=== PATIENT | female | born 1995 | race Caucasian/White ===

== ENCOUNTER 2023-12-20 15:56 | Outpatient (AMB) | payer OTHER, SELFPAY ==
--- NOTE | 2023-12-20 15:58 | MHC.PC.OV ---
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 Accompanied by: Self / Same As Patient Allergies Sulfa (Sulfonamide Antibiotics) Allergy (Unknown, Verified 12/20/23 16:12) hives Medication List - Last Reconciled 12/20/23 by Luz Bosch MD cholecalciferol (vitamin D3) 25 mcg PO DAILY 30 days cyanocobalamin (vitamin B-12) 100 mcg (0.1 mL) IM Q4W 30 days hydrocortisone 1% (Anti-Itch (hydrocortisone)) 1 appl topical TID PRN 30 days ibuprofen 600 mg PO Q8H PRN insulin syringe-needle U-100 (CareTouch Insulin Syringe) Use 1 needle once a month norethindrone-e.estradiol-iron 1.5 mg-30 mcg ()/75 mg (7) ( FE .03/16 ()) 1 tab PO DAILY Tobacco use date assessed: 12/20/23 Dental Screening Dental Screen Date: 12/20/23 Did you have a dental visit in the last 12 months?: Yes Did you have a dental problem in the last 6 months where you did not have access to dental care?: No Was dental information given to patient?: Patient has dentist HPI HPI Comments History of Present Illness Details This is a 28-year-old female that comes for her physical exam. Pap smear done November 2023. No chest pain or shortness of breath. [facility] Medical History Eczema Surgical History No pertinent past surgical history Family History Father No problems noted. Mother Mental health disorder Social History (Updated 12/20/23 @ 16:15 by Luz Bosch MD) Housing: Apartment Alcohol intake: current Alcohol intake frequency: a few times a month Alcohol type: hard liquor Patient Tobacco Use Status: Former Tobacco user e-Cigarette/Vaping Use: Never Used Second Hand Smoke Exposure: No service: No Current occupational status: employed Current occupational exposures/hazards: No Cognitive needs: No Hearing needs: No Vision needs: No Questionnaire PHQ-9 Over the last 2 weeks, how often have you been bothered by any of the following problems? 1. Little interest or pleasure in doing things: not at all 2. Feeling down, depressed, or hopeless: not at all 3. Trouble falling or staying asleep, or sleeping too much: not at all 4. Feeling tired or having little energy: not at all 5. Poor appetite or overeating: not at all 6. Feeling bad about yourself - or that you are a failure or have let yourself or your family down: not at all 7. Trouble concentrating on things, such as reading the newspaper or watching television: not at all 8. Moving or speaking so slowly that other people could have noticed. Or the opposite - being so fidgety or restless that you have been moving around a lot more than usual: not at all 9. Thoughts that you would be better off or of hurting yourself in some way: not at all Total score: 0 Depression Screening Interpretation: Negative Depression Screening Done: Yes 20121 - PHQ-9 Billing: Yes Source: Developed by Drs. Jan Bee, Ashlee Jordan, Pj Hanson and colleagues, with an educational puja from [employer]. Thrive Questionnaire Date Thrive assessed: 12/20/23 I am a: Patient What is your living situation today?: I have a steady place to live Within the past 12 months, did the food you bought not last and you didn't have the money to get more?: Never true Within the past 12 months, did you worry whether your food would run out before you got money to buy more?: Never true Do you have trouble paying for medicines?: No Do you have trouble getting transportation to medical appointments?: No Do you have trouble paying your heating and electricity bill?: No Do you have trouble taking care of your child, family member or friend?: No Do you have trouble with day-to-day activities such as bathing, preparing meals, shopping, managing finances, etc.?: No Are you currently unemployed and looking for a job?: No Are you interested in more education?: No Please select the resources that you would like help with: None Currently or been in a relationship where the following occur: no concerns reported THRIVE Score: 0 AUDIT C Alcohol Use Questionnaire (AUDIT-C) 1. How often do you have a drink containing alcohol?: 2-4 times a month 2. How many drinks containing alcohol do you have on a typical day when you are drinking?: 1 or 2 3. How often do you have six or more drinks on one occasion?: Never Total Score: 2 Score Reviewed/Action Taken: No JASVIR-7 AMB Questionnaire JASVIR-7 Date JASVIR - 7 assessed: 12/20/23 Feeling nervous, anxious, or on edge: 0 = Not at all Not being able to stop or control worryin = Not at all Worrying too much about different things: 0 = Not at all Trouble relaxin = Not at all Being so restless that it is hard to sit still: 0 = Not at all Becoming easily annoyed or irritable: 0 = Not at all Feeling afraid as if something awful might happen: 0 = Not at all Total JASVIR-7 score (0-4 normal; 5-9 mild; 10-14 moderate; 15-21 severe): 0 Source: Developed by Drs. Jan Bee, Ashlee Jordan, Pj Hanson and colleagues, with an educational puja from [employer]. JASVIR-7 Assessment Billing JASVIR-7 Assessment Tool: JASVIR-7 Assessment 75816 Review of Systems Const All systems reviewed & are unremarkable except as noted in HPI and below Eyes Reports no additional complaints, Denies change in vision and Denies other visual disturbances Card Denies chest pain at rest, Denies chest pain with activity, Denies edema, Denies irregular heart rhythm, Denies claudication, Denies dyspnea, Denies dyspnea on exertion, Denies orthopnea, Denies paroxysmal nocturnal dyspnea and Denies slow heart rate Resp Denies cough, Denies dyspnea and Denies dyspnea on exertion GI Denies abdominal pain, Denies change in bowel habits, Denies excessive flatus, Denies nausea and Denies vomiting Denies urinary incontinence, Denies urinary hesitancy and Denies urinary urgency Musc Denies abnormal gait, Denies atrophy, Denies deformity and Denies limited range of motion Skin/Breast Denies bleeding lesions, Denies changing lesions and Denies rash Neuro Denies abnormal gait, Denies behavioral changes, Denies confusion and Denies lack of coordination Psych Denies behavioral changes and Denies confusion Physical exam (Primary Care) Vital Signs: Last Vital Signs BP 122/80 12/20/23 15:59 BMI result Body Mass Index 34.1 Tobacco/Smoking Status: Tobacco use Status Tobacco use date assessed 12/20/23 12/20/23 16:07 Patient Tobacco Use Status Former Tobacco user 12/20/23 16:15 e-Cigarette/Vaping Use Never Used 12/20/23 16:15 PHQ-9: PHQ-9 Score PHQ-9: Total score 0 12/20/23 16:16 Depression Screening Interpretation: Negative Thrive Assessment: Date of Thrive Assessment Date Thrive assessed 12/20/23 12/20/23 16:07 Currently or been in a relationship where the following occur: no concerns reported Const General: No confusion Orientation/consciousness: patient oriented x3 and No confusion HENMT Head: Yes normal to inspection, Yes normocephalic and Yes atraumatic Ears: external ears normal Eyes General: appearance normal, both eyes and all related structures Eyelids: Yes eyelids normal Conjunctivae: conjunctivae normal Neck Neck: Yes normal visual inspection and Yes supple Resp Effort & Inspection: normal respiratory effort Auscultation: clear to auscultation bilaterally Cardio Jugular venous distension: no JVD Rate: regular rate Rhythm: regular rhythm Heart sounds: S1 normal heart sound present and S2 normal heart sound present GI Inspection: Yes normal to inspection Palpation (GI): Soft to palpation and nontender Auscultation: normal bowel sounds Skin General skin exam: no rashes or lesions noted Neuro General: patient oriented x3, no focal motor deficits and No confusion Extrem General: Yes full ROM Psych Appearance: grossly normal Assessment and Plan Assessment & Plan (1) Adult general medical exam: Code(s): Z00.00 - Encounter for general adult medical examination without abnormal findings Plan: Repeat in a year. Orders: Orders Vitamin B12 and Folate Today E53.8 - Deficiency of other specified B group vitamins Vitamin D 25-OH Total Today E55.9 - Vitamin D deficiency, unspecified Lipid Panel Today Z00.00 - Encounter for general adult medical examination without abnormal findings Comprehensive [place]. Panel Fast Today Z00.00 - Encounter for general adult medical examination without abnormal findings Referrals Pain Management Referral M54.9 - Dorsalgia, unspecified Coding Level of Care Code Est Pt Prev Care 18-39y(20382) Diagnoses Adult general medical exam Z00.00 Additional Codes JASVIR-7 Assessment Billing - JASVIR-7 Assessment Tool: JASVIR-7 Assessment 45150 ([id number]) Time Spent (min) 31
[2023-12-20 15:59] VITALS: BP 122/80; BMI 34.1
== END 2023-12-20 16:24 | disposition home or self-care (01) ==
PROVIDERS: Visit Provider Internal Medicine
DX: Z00.00 Encounter for general adult medical examination without abnormal findings (principal)
CPT/HCPCS: 99395

== ENCOUNTER 2024-01-21 07:57 | Outpatient (REF) | payer OTHER, SELFPAY ==
--- NOTE | ~2024-01-21 | XR_ITS ---
EXAMINATION: XR SACROILIAC JOINTS CLINICAL INFORMATION: Low back pain COMPARISON: None available. TECHNIQUE: 3 views of the sacroiliac joints FINDINGS: Sacroiliac joint spaces are preserved. No active erosions or ankylosis evident. There is subtle sclerosis along the joint margin which may be degenerative or represent mild chronic sacroiliitis. XR/XR sacroiliac joint min 3V IMPRESSION: There is subtle sclerosis along the sacroiliac joint margins which may be degenerative or represent mild chronic sacroiliitis. No erosions or ankylosis. MRI could assess for active inflammation if indicated.
--- NOTE | ~2024-01-21 | XR_ITS ---
EXAMINATION: XR LUMBOSACRAL SPINE WITH OBLIQUES CLINICAL INFORMATION: Low back pain COMPARISON: Previous x-ray October 2016 TECHNIQUE: AP, both oblique, and lateral views of the lumbar spine. Lateral view of the lumbosacral junction. FINDINGS: Bone alignment is normal. No fracture or dislocation. Normal disc spaces. No pars defect. Normal paraspinal soft tissues. XR/XR lumbar spine 4V min IMPRESSION: Unremarkable examination.
[2024-01-21 08:21] LABS: MANUAL DIFF FLAG NO
[2024-01-21 08:43] LABS: Basophils Percent Auto 0.4 % (0-2); Eosinophils Absolute Auto 0.2 X10*3/uL (0.0-0.4); Hematocrit 40.4 % (37.0-47.0); Hemoglobin 13.1 g/dl (12.0-16.0); Lymphocytes Absolute Auto 2.4 X10*3/uL (1.2-4.9); Mean Corpuscular HGB Conc 32.4 g/dl (31.0-35.0); Mean Corpuscular Hemoglobin 26.4 pg (27.0-33.0); Mean Corpuscular Volume 81.5 fL (80.0-98.0); Mean Platelet Volume 9.3 fL (9.4-12.3); Monocytes Absolute Auto 0.3 X10*3/uL (0.1-1.2); Neutrophils Absolute Auto 2.5 x10*3/uL (2.0-8.3); Neutrophils Percent Auto 45.6 % (45-73); Platelet Count 331 X10*3/uL (160-400); Red Blood Count 4.96 X10*6/uL (4.20-5.50); Red Cell Distribution Width 12.6 % (11.0-16.0); White Blood Count 5.5 X10*3/uL (4.8-10.8)
[2024-01-21 09:14] LABS: Alanine Aminotransferase 32 U/L (0-31); Albumin Level 4.8 g/dL (3.5-5.0); Alkaline Phosphatase 52 U/L (39-117); Anion Gap 12 (12-20); Aspartate Amino Transferase 30 U/L (5-31); Bilirubin Total 0.6 mg/dL (0.0-1.0); Blood Urea Nitrogen 10 mg/dL (9-16); Calcium 9.3 mg/dL (8.4-10.2); Carbon Dioxide 25 mmol/L (22-29); Chloride 106 mmol/L (96-108); Cholesterol 173 mg/dL (<200); Estimated Glomerular Filt Rate > 60; Glucose Fasting 97 mg/dL (60-99); HDL Cholesterol 44 mg/dL (>40); LDL Cholesterol Calculated 102 mg/dL (<100); Sodium 139 mmol/L (135-145); Total Protein 7.8 g/dL (6.5-8.0); Triglycerides 138 mg/dL (<150)
[2024-01-21 10:01] LABS: Folate 14.1 ng/mL (> or = 4.0); Vitamin B12 346 pg/mL (200-900)
[2024-01-27 13:17] LABS: Parietal Cell Antibody <=20.0 Unit (<=20.0)
[2024-01-27 20:29] LABS: Intrinsic Factor Antibodies Negative (Negative)
== END 2024-01-21 07:58 | disposition home or self-care (01) ==
LOC: HO.LAB 07:57
PROVIDERS: Absent Provider Nurse Practitioner Family; PCP Internal Medicine; Visit Provider Internal Medicine
DX: Z00.00 Encounter for general adult medical examination without abnormal findings (principal); M54.9 Dorsalgia, unspecified; D64.9 Anemia, unspecified; E53.8 Deficiency of other specified B group vitamins; E55.9 Vitamin D deficiency, unspecified; M54.50 Low back pain, unspecified; M47.816 Spondylosis without myelopathy or radiculopathy, lumbar region; M53.3 Sacrococcygeal disorders, not elsewhere classified; M62.830 Muscle spasm of back
CPT/HCPCS: 36415; 72110; 72202; 80053; 80061; 82306; 82607; 82746; 83516; 85025; 86340; 99202

== ENCOUNTER 2024-01-21 14:51 | Outpatient (AMB) | payer OTHER, SELFPAY ==
--- NOTE | 2024-01-21 14:58 | MHC.OFFVIS ---
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 Denies any past or recent trauma, injury, or falls. She has been experiencing low back pain for the past 5 years which has been worsening for the past year. Patient is a full-time dental assistant speech language pathologist and reports significant low back pain with prolonged standing or bending during her work hours or at home caring for her family, including 1.5-year-old toddler. She reports her last childbirth was without complications but had significant low back pain and had epidural during labor and delivery. Back pain is axial and also radiates to her sacral areas and positive provocative testing for left sacroiliac joint pain. She is trying to stay physically active and walk every day but finds it more difficult to accomplish due to significant pain after work and evening hours. Pain affects her daily activities, functioning, sleep, social activities, and quality of life. Denies any fever, abdominal or groin pain, numbness, tingling, weakness, footdrop, bladder or bowel incontinence or saddle anesthesia. Oswestry Low Back Disability Score-9 (mild disability) Location Lower back, more on the left side and left buttock Duration Chronic pain >5 years Characteristics of symptom or complaint Aching, tiring, heavy, constant Aggravating or associated factors Movement, prolonged standing and walking Relieving factors Ibuprofen, Tylenol, heat therapy, IcyHot, OTC topical creams Treatment Massage, chiropractor therapy, walking (limited due to pain) [facility] Medical History Eczema Surgical History No pertinent past surgical history Family History Father No problems noted. Mother Mental health disorder Social History (Updated 12/20/23 @ 16:15 by Luz Bosch MD) Housing: Apartment Alcohol intake: current Alcohol intake frequency: a few times a month Alcohol type: hard liquor Patient Tobacco Use Status: Former Tobacco user e-Cigarette/Vaping Use: Never Used Second Hand Smoke Exposure: No service: No Current occupational status: employed Current occupational exposures/hazards: No Cognitive needs: No Hearing needs: No Vision needs: No Review of Systems Const All systems reviewed & are unremarkable except as noted in HPI and below Physical Exam Vital Signs: Last Vital Signs Pulse 62 01/21/24 15:02 BP 132/74 01/21/24 15:02 Pulse Ox 99 01/21/24 15:02 Oxygen Delivery Method Room Air 01/21/24 15:02 BMI result Body Mass Index 32.2 General: Appears afebrile. Alert and oriented. Mood and affect appropriate. Follows and participates in conversation appropriately. Respiratory effort is unlabored. No cough. No nasal disc Able to transition from sit to stand unassisted. Ambulates with bilaterally normal heel strike and toe off. Back/Spine/Pelvis Other: Patient is able to walk and stand on heels and tip toes with no difficulties demonstrating good motor tone. No limping. Can flex forward to 80-90 degrees and extend to 5-10 degrees before experiencing lumbar pain. No midline tenderness to palpation in the thoracic or lumbar region. Moderate paraspinal tenderness to palpation in the lumbar spine, more on the left side. Demonstrates 5/5 strength of quadriceps bilaterally as well as flexion/dorsiflexion of bilateral feet against resistance. 2+ pedal pulses bilaterally. Seated straight leg rise with dorsiflexion negative bilaterally. +2 patellar and achilles reflexes bilaterally. Facet loading test positive bilaterally. Ct sign, Maikel?s, [place], Pelvic compression and Stinchfield tests are positive on the left. No groin pain with I/E hip rotations. No tenderness to bilateral GTB. Cervical Spine: cervical ROM normal, cervical muscular tenderness and No Cervical spine tenderness Thoracic/Lumbar Spine: thoracic and lumbar spine normal to inspection, No Thoracic/lumbar spine scar(s), Lasegue's sign negative, straight leg raise negative bilaterally, pain with thoraco-lumbar ROM, paraspinal muscle tenderness, No thoracic spinal tenderness and lumbar spinal tenderness at L5 Pelvis: no buttock tenderness Sacroiliac joints: on the right nontender and on the left tender to palpation Results Reviewed Results Reviewed: No imaging reports are available for review. Assessment & Plan Assessment & Plan (1) Low back pain: Code(s): M54.50 - Low back pain, unspecified (2) Lumbar spondylosis: Code(s): M47.816 - Spondylosis without myelopathy or radiculopathy, lumbar region (3) Sacroiliac joint pain: Code(s): M53.3 - Sacrococcygeal disorders, not elsewhere classified (4) Low back pain: Code(s): M54.50 - Low back pain, unspecified (5) Lumbar spondylosis: Code(s): M47.816 - Spondylosis without myelopathy or radiculopathy, lumbar region (6) Sacroiliac joint pain: Code(s): M53.3 - Sacrococcygeal disorders, not elsewhere classified (7) Muscle spasm of back: Code(s): M62.830 - Muscle spasm of back Plan Lumbar spine and SIJ imaging to assess degree of degenerative changes, any subluxation, listhesis, compression fractures or pars defects. Recommend formal physical therapy for low back and left SIJ pain. Script provided today. Scripts provided for meloxicam and magnesium glycinate for low back pain with muscle spasms. Side effects and precautions discussed with patient. Follow-up in 1-2 months to see response to physical therapy, if no response to physical therapy will consider further interventional strategy. Orders: Orders XR sacroiliac joint min 3V 01/21/24 M53.3 - Sacrococcygeal disorders, not elsewhere classified, M54.50 - Low back pain, unspecified PT Evaluation and Treatment 01/21/24 M47.816 - Spondylosis without myelopathy or radiculopathy, lumbar region, M53.3 - Sacrococcygeal disorders, not elsewhere classified, M54.50 - Low back pain, unspecified XR lumbar spine 4V min 01/21/24 M47.816 - Spondylosis without myelopathy or radiculopathy, lumbar region, M54.50 - Low back pain, unspecified Medications: New magnesium glycinate 200 mg (2 x 100 mg) PO BID 30 days 120 tabs 0RF muscle spasms M54.50 - Low back pain, unspecified, M62.830 - Muscle spasm of back meloxicam Take it with food and full glass of water. 15 mg PO DAILY 30 days PRN 30 tabs 0RF pain (scale score 7-10) M47.816 - Spondylosis without myelopathy or radiculopathy, lumbar region, M53.3 - Sacrococcygeal disorders, not elsewhere classified, M54.50 - Low back pain, unspecified Discontinued ibuprofen Discontinued Reason: Patient Completed Course 600 mg PO Q8H PRN 20 tabs 0RF pain M54.9 - Dorsalgia, unspecified Coding Level of Care Code New Pt Level 4 (78012) Diagnoses Low back pain M54.50 Lumbar spondylosis M47.816 Sacroiliac joint pain M53.3 Muscle spasm of back M62.830
[2024-01-21 15:02] VITALS: BP 132/74; PULSE 62; O2SAT 99; BMI 32.2
== END 2024-01-21 15:38 | disposition home or self-care (01) ==
PROVIDERS: PCP Internal Medicine; Referring Provider Internal Medicine; Visit Provider Nurse Practitioner Family
DX: M54.50 Low back pain, unspecified (principal); M47.816 Spondylosis without myelopathy or radiculopathy, lumbar region; M53.3 Sacrococcygeal disorders, not elsewhere classified; M62.830 Muscle spasm of back
CPT/HCPCS: 99204

== ENCOUNTER 2024-02-29 10:28 | Outpatient (REF) | payer OTHER, SELFPAY ==
--- NOTE | ~2024-02-29 | XR_ITS ---
EXAMINATION: XR CHEST CLINICAL INFORMATION: Preprocedural examination evaluation COMPARISON: None available. TECHNIQUE: Frontal view of the chest was obtained. FINDINGS: Lungs clear. Heart and pulmonary vessels normal. XR/XR chest 1V IMPRESSION: No active disease.
--- NOTE | 2024-02-29 10:36 | ECG_ITS ---
Test Reason : PREOP Blood Pressure : / mmHG Vent. Rate : 063 BPM Atrial Rate : 063 BPM P-R Int : 154 ms QRS Dur : 082 ms QT Int : 374 ms P-R-T Axes : 026 030 021 degrees QTc Int : 382 ms Sinus rhythm with Premature atrial complexes Otherwise normal ECG No previous ECGs available Referred By: Luz Bosch Electronically Signed By:LUCIA FREEMAN MD
== END 2024-02-29 10:29 | disposition home or self-care (01) ==
LOC: HO.XRAY 10:28
PROVIDERS: PCP Internal Medicine; Visit Provider Internal Medicine
DX: Z01.818 Encounter for other preprocedural examination (principal)
CPT/HCPCS: 71045; 93005

== ENCOUNTER → 2024-02-29 10:36 | Outpatient (BNV) | payer OTHER, SELFPAY | PROVIDERS: PCP Internal Medicine; Visit Provider Internal Medicine Cardiovascular Disease | DX: I49.1 Atrial premature depolarization (principal) | CPT/HCPCS: 93010 ==

== ENCOUNTER 2024-03-01 16:23 | Outpatient (AMB) | payer OTHER, SELFPAY ==
[2024-03-01 16:27] VITALS: BP 118/80; PULSE 66; BMI 31.9
--- NOTE | 2024-03-01 16:27 | MHC.PC.OV ---
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 She denies any chest pain or shortness of breath. Has 5-7 Mets of ADLs. EKG and labs were within normal limits with no contraindication to surgery. By RCRI she is class 1 with 0.4% risk of cardiac complications. This is a low risk patient going to the medium risk surgery. Patient medically clear for surgery. PFSH Medical History Eczema Surgical History No pertinent past surgical history Family History Father No problems noted. Mother Mental health disorder Social History Housing: Apartment Alcohol intake: current Alcohol intake frequency: a few times a month Alcohol type: hard liquor Patient Tobacco Use Status: Former Tobacco user e-Cigarette/Vaping Use: Never Used Second Hand Smoke Exposure: No service: No Current occupational status: employed Current occupational exposures/hazards: No Cognitive needs: No Hearing needs: No Vision needs: No Questionnaire Thrive Questionnaire Date Thrive assessed: 12/20/23 JASVIR-7 AMB Questionnaire JASVIR-7 Date JASVIR - 7 assessed: 12/20/23 Source: Developed by Drs. Jan Bee, Ashlee Jordan, Pj Hanson and colleagues, with an educational puja from [employer]. Review of Systems Const All systems reviewed & are unremarkable except as noted in HPI and below Eyes Reports no additional complaints, Denies change in vision and Denies other visual disturbances Card Denies chest pain at rest, Denies chest pain with activity, Denies edema, Denies irregular heart rhythm, Denies claudication, Denies dyspnea, Denies dyspnea on exertion, Denies orthopnea, Denies paroxysmal nocturnal dyspnea and Denies slow heart rate Resp Denies cough, Denies dyspnea and Denies dyspnea on exertion GI Denies abdominal pain, Denies change in bowel habits, Denies excessive flatus, Denies nausea and Denies vomiting Denies urinary incontinence, Denies urinary hesitancy and Denies urinary urgency Musc Denies abnormal gait, Denies atrophy, Denies deformity and Denies limited range of motion Neuro Denies abnormal gait, Denies behavioral changes, Denies confusion and Denies lack of coordination Psych Denies behavioral changes and Denies confusion Physical exam (Primary Care) Vital Signs: Last Vital Signs BP 118/80 03/01/24 16:27 BMI result Body Mass Index 31.9 Tobacco/Smoking Status: Tobacco use Status Tobacco use date assessed 12/20/23 03/01/24 16:33 Patient Tobacco Use Status Former Tobacco user 03/01/24 16:33 e-Cigarette/Vaping Use Never Used 03/01/24 16:33 Thrive Assessment: Date of Thrive Assessment Date Thrive assessed 12/20/23 03/01/24 16:33 Const General: No confusion Orientation/consciousness: patient oriented x3 and No confusion Resp Effort & Inspection: normal respiratory effort Auscultation: clear to auscultation bilaterally Cardio Jugular venous distension: no JVD Rate: regular rate Rhythm: regular rhythm Heart sounds: S1 normal heart sound present and S2 normal heart sound present Neuro General: patient oriented x3, no focal motor deficits and No confusion Extrem General: Yes full ROM Psych Appearance: grossly normal Assessment and Plan Assessment & Plan (1) Pre-op evaluation: Code(s): Z01.818 - Encounter for other preprocedural examination Plan: Patient medically clear for surgery. Coding Level of Care Code Est Pt Level 3 (07459) Diagnoses Pre-op evaluation Z01.818 Time Spent (min) 20
== END 2024-03-01 16:52 | disposition home or self-care (01) ==
PROVIDERS: PCP Internal Medicine; Visit Provider Internal Medicine
DX: Z01.818 Encounter for other preprocedural examination (principal)
CPT/HCPCS: 99213

== ENCOUNTER → 2024-03-08 08:38 | Outpatient (REF) | payer OTHER, SELFPAY ==
--- NOTE | 2024-03-08 08:51 | ECG_ITS ---
Test Reason : PACS Blood Pressure : / mmHG Vent. Rate : 073 BPM Atrial Rate : 073 BPM P-R Int : 150 ms QRS Dur : 082 ms QT Int : 360 ms P-R-T Axes : 023 039 039 degrees QTc Int : 396 ms Normal sinus rhythm with sinus arrhythmia Normal ECG When compared with ECG of 29-FEB-2024 10:41, Premature atrial complexes are no longer Present Referred By: Luz Bosch Electronically Signed By:LUCIA FREEMAN MD
== END ==
LOC: HO.CARD 08:38
PROVIDERS: PCP Internal Medicine; Visit Provider Internal Medicine
DX: I49.1 Atrial premature depolarization (principal)
CPT/HCPCS: 93005

== ENCOUNTER → 2024-03-08 08:51 | Outpatient (BNV) | payer OTHER, SELFPAY | PROVIDERS: PCP Internal Medicine; Visit Provider Internal Medicine Cardiovascular Disease | DX: I49.1 Atrial premature depolarization (principal) | CPT/HCPCS: 93010 ==

== ENCOUNTER 2024-06-20 15:46 | Outpatient (AMB) | payer OTHER, SELFPAY ==
--- NOTE | 2024-06-20 15:46 | MHC.PC.OV ---
Vital Signs 06/20/24 15:47 Height 5 ft 4.5 in Weight 194 lb 2 oz BMI 32.8 BP 122/76 Blood Pressure Location Lt brachial Position Sitting Pulse 48 L Pulse Source Pulse Oximeter Pulse Oximetry (%) 98 Oxygen Delivery Method Room Air Intake Visit Reasons: elbow pain / possible infection due to cut Intake Note: Dr. Bassett's pt here for a [facility] visit.: Left elbow pain. 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 She reports 3 weeks ago falling and injuring her right elbow resulting in a laceration. She did not seek medical attention. Then more recently hitting her elbow on a dumpster which resulted in some swelling and erythema around the right elbow. She denies any fevers or chills. She is able to fully extend and flex her right elbow. She is concerned about the swelling and erythema at the right elbow. [facility] Medical History Eczema Surgical History No pertinent past surgical history Family History Father No problems noted. Mother Mental health disorder Social History Housing: Apartment Alcohol intake: current Alcohol intake frequency: a few times a month Alcohol type: hard liquor Patient Tobacco Use Status: Former Tobacco user e-Cigarette/Vaping Use: Never Used Second Hand Smoke Exposure: No service: No Current occupational status: employed Current occupational exposures/hazards: No Cognitive needs: No Hearing needs: No Vision needs: No Questionnaire Thrive Questionnaire Date Thrive assessed: 12/20/23 JASVIR-7 AMB Questionnaire JASVIR-7 Date JASVIR - 7 assessed: 12/20/23 Source: Developed by Drs. Jan Bee, Ashlee Jordan, Pj Hanson and colleagues, with an educational puja from [employer]. Review of Systems Const Denies headache(s) Eyes Denies loss of vision ENT Denies vertigo, Denies dizziness, Denies headache(s) and Denies sore throat Card Denies chest pain, Denies leg edema and Denies lightheadedness Resp Denies cough, Denies hemoptysis and Denies wheezing GI Denies abdominal pain, Denies melena, Denies constipation, Denies diarrhea and Denies vomiting Denies urinary frequency, Denies dysuria and Denies urinary urgency Musc Denies arthralgias, Denies joint swelling, Denies numbness and Denies tingling Neuro Denies Abnormal speech present, Denies behavioral changes, Denies vertigo, Denies dizziness, Denies headache(s), Denies loss of vision, Denies memory loss, Denies numbness and Denies tingling Psych Denies anxiety, Denies behavioral changes, Denies depression, Denies memory loss and Denies panic attacks Kiran/Lymph Denies easy bleeding and Denies easy bruising Aller/Immun Denies wheezing Physical exam (Primary Care) Vital Signs: Last Vital Signs Pulse 48 L 06/20/24 15:47 BP 122/76 06/20/24 15:47 Pulse Ox 98 06/20/24 15:47 Oxygen Delivery Method Room Air 06/20/24 15:47 BMI result Body Mass Index 32.8 Tobacco/Smoking Status: Tobacco use Status Tobacco use date assessed 12/20/23 06/20/24 15:47 Patient Tobacco Use Status Former Tobacco user 06/20/24 15:47 e-Cigarette/Vaping Use Never Used 06/20/24 15:47 Thrive Assessment: Date of Thrive Assessment Date Thrive assessed 12/20/23 06/20/24 15:47 Const General: healthy appearing, no acute distress, alert and awake Nutritional Appearance: well nourished Orientation/consciousness: oriented to person, oriented to place and oriented to time HENMT Ears: TM's normal bilaterally General nose exam: Normal nasal mucous membranes and turbinates present Eyes Conjunctivae: conjunctivae normal Sclerae: sclerae normal Pupils: Equal, round and reactive pupils present Neck Neck: Yes no lymphadenopathy and Yes no JVD Thyroid: Thyroid normal Carotids: no bruits Resp Effort & Inspection: normal respiratory effort and not tachypneic Auscultation: no crackles, no rales, no rhonchi and no wheezes Cardio Rate: regular rate Rhythm: regular rhythm Heart sounds: no murmurs and normal S1 and S2 GI Palpation (GI): Soft to palpation, nontender, no hepatomegaly and no splenomegaly Auscultation: normal bowel sounds Skin General skin exam: no rashes or lesions noted and dry skin Neuro General: oriented to person, oriented to place and oriented to time Cranial nerves: Yes Equal, round and reactive pupils present Speech: No Abnormal speech present Gait exam (Neuro): Normal gait present Motor exam (neuro): no tremor noted Extrem Other: Right upper extremity: full ROM Left upper extremity: full ROM Right lower extremity: full ROM; no edema Left lower extremity: full ROM; no edema Psych Mental Status: mental status grossly normal Speech and movement: Normal speech and movement present Affect: normal affect Attitude: cooperative Thought process: Normal thought process present Assessment and Plan Assessment & Plan (1) Olecranon bursitis of left elbow: Code(s): M70.22 - Olecranon bursitis, left elbow Plan: Patient reports 3 weeks ago following down and scraping her elbow. Then most recently bumping her elbow on a dumpster in the next day having inflammation and redness around her elbow. She reports she is able to bend her elbow fine though is concerned about the erythema and edema. Otherwise no fevers and is neurovascularly intact in distal right hand.. Out abundance of caution will treat for infection and advised on NSAID for inflammation. Will refer to orthopedics Please see pictures in physical exam portion. Orders: Orders XR elbow LT min 3V 06/20/24 M70.22 - Olecranon bursitis, left elbow Referrals Orthopedics Referral M70.22 - Olecranon bursitis, left elbow Medications: New amoxicillin-pot clavulanate 875-125 mg 1 tab PO BID 14 tabs 0RF 7 days M70.22 - Olecranon bursitis, left elbow ibuprofen 800 mg PO Q8H 30 tabs 0RF 10 days M70.22 - Olecranon bursitis, left elbow Coding Level of Care Code Est Pt Level 3 (18165) Diagnoses Olecranon bursitis of left elbow M70.22
[2024-06-20 15:47] VITALS: BP 122/76; PULSE 48; O2SAT 98; BMI 32.8
== END 2024-06-20 16:08 | disposition home or self-care (01) ==
PROVIDERS: PCP Internal Medicine; Visit Provider Physician Assistant
DX: M70.22 Olecranon bursitis, left elbow (principal)
CPT/HCPCS: 99213

== ENCOUNTER 2024-06-20 16:10 | Outpatient (REF) | payer OTHER, SELFPAY ==
--- NOTE | ~2024-06-20 | XR_ITS ---
EXAMINATION: XR ELBOW, LEFT CLINICAL INFORMATION: Left elbow olecranon bursitis. COMPARISON: None available. TECHNIQUE: AP, lateral, and oblique views of the left elbow. FINDINGS: No acute fracture or dislocation. No joint space narrowing or marginal osteophytes. No osseous erosion. No joint effusion. No abnormal soft tissue calcification. Prominent soft tissue swelling with subcutaneous stranding posterior to the olecranon, likely indicating olecranon bursitis. XR/XR elbow LT min 3V IMPRESSION: Prominent soft tissue swelling with subcutaneous stranding posterior to the olecranon, likely indicating olecranon bursitis. Electronically signed by: Tanner Sosa MD 06/26/2024 09:52 PM EDT
== END 2024-06-20 16:11 | disposition home or self-care (01) ==
LOC: HO.XRAY 16:10
PROVIDERS: PCP Internal Medicine; Visit Provider Physician Assistant
DX: M70.22 Olecranon bursitis, left elbow (principal)
CPT/HCPCS: 73080

== ENCOUNTER 2025-01-16 15:20 | Outpatient (AMB) | payer OTHER, SELFPAY ==
--- NOTE | 2025-01-16 15:25 | A.OFFPC_ITS ---
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 Accompanied by: Self / Same As Patient Allergies Sulfa (Sulfonamide Antibiotics) Allergy (Unknown, Verified 01/16/25 15:36) hives Medication List - Last Reconciled 01/16/25 by Luz Bosch MD ibuprofen 800 mg PO Q8H 10 days insulin syringe-needle U-100 (CareTouch Insulin Syringe) Use 1 needle once a month norethindrone-e.estradiol-iron 1.5 mg-30 mcg (21)/75 mg (7) ( ()) 1 tab PO DAILY Tobacco use date assessed: 01/16/25 Dental Screening Dental Screen Date: 01/16/25 Did you have a dental visit in the last 12 months?: Yes Did you have a dental problem in the last 6 months where you did not have access to dental care?: No HPI HPI Comments History of Present Illness Details The patient is a 29-year-old female presenting for a wellness visit and physical examination. She reports chronic back pain that had improved with weight loss, but has resurfaced in the previous two months without a change in her weight. The back pain varies in intensity and is persistent over time. She has used pain management and has attended physical therapy, which she found minimally effective. In addition to her back pain, the patient manages Lactose Intolerance that causes stomach discomfort if lactose-containing foods are consumed. In such cases, she takes Ibuprofen. Last summer, the patient underwent cosmetic surgeries, which include Lipo 360 and a [place] Butt Lift, indicating an ongoing recovery process. Her previous Vitamin D levels were low, suspected to continue being deficient due to lack of supplementation, presenting as fatigue primarily. Other health screenings have yielded normal results for sugar, kidney, and liver functions from previous assessments. - Last Pap smear was negative - Tdap vaccine administered in 2018, nex t due in 2028 - Vitamin D screening and supplementatio n discussed - General blood work generally up to liborio e [facility] Medical History Eczema Surgical History (Updated 01/16/25 @ 15:41 by Luz Bosch MD) H/O cosmetic surgery Family History Father No problems noted. Mother Mental health disorder Social History Housing: Apartment Alcohol intake: current Alcohol intake frequency: a few times a month Alcohol type: hard liquor Patient Tobacco Use Status: Former Tobacco user e-Cigarette/Vaping Use: Never Used Second Hand Smoke Exposure: No service: No Current occupational status: employed Current occupational exposures/hazards: No Cognitive needs: No Hearing needs: No Vision needs: No Questionnaire PHQ-9 Over the last 2 weeks, how often have you been bothered by any of the following problems? 1. Little interest or pleasure in doing things: not at all 2. Feeling down, depressed, or hopeless: not at all 3. Trouble falling or staying asleep, or sleeping too much: not at all 4. Feeling tired or having little energy: not at all 5. Poor appetite or overeating: not at all 6. Feeling bad about yourself - or that you are a failure or have let yourself or your family down: not at all 7. Trouble concentrating on things, such as reading the newspaper or watching television: not at all 8. Moving or speaking so slowly that other people could have noticed. Or the opposite - being so fidgety or restless that you have been moving around a lot more than usual: not at all 9. Thoughts that you would be better off or of hurting yourself in some way: not at all Total score: 0 Depression Screening Interpretation: Negative Depression Screening Done: Yes 06642 - PHQ-9 Billing: Yes Source: Developed by Drs. Jan Bee, Ashlee Jordan, Pj Hanson and colleagues, with an educational puja from [employer] Thrive Questionnaire Date Thrive assessed: 01/15/25 I am a: Patient What is your living situation today?: I have a steady place to live Within the past 12 months, did the food you bought not last and you didn't have the money to get more?: Never true Within the past 12 months, did you worry whether your food would run out before you got money to buy more?: Never true Do you have trouble paying for medicines?: No Do you have trouble getting transportation to medical appointments?: No Do you have trouble paying your heating and electricity bill?: No Do you have trouble taking care of your child, family member or friend?: No Do you have trouble with day-to-day activities such as bathing, preparing meals, shopping, managing finances, etc.?: No Are you currently unemployed and looking for a job?: No Are you interested in more education?: No Please select the resources that you would like help with: None Currently or been in a relationship where the following occur: No concerns reported THRIVE Score: 0 AUDIT C Alcohol Use Questionnaire (AUDIT-C) 1. How often do you have a drink containing alcohol?: 2-4 times a month 2. How many drinks containing alcohol do you have on a typical day when you are drinking?: 3 or 4 3. How often do you have six or more drinks on one occasion?: Never Total Score: 3 Score Reviewed/Action Taken: No JASVIR-7 AMB Questionnaire JASVIR-7 Date JASVIR - 7 assessed: 01/16/25 Feeling nervous, anxious, or on edge: 0 = Not at all Not being able to stop or control worryin = Not at all Worrying too much about different things: 0 = Not at all Trouble relaxin = Several days Being so restless that it is hard to sit still: 0 = Not at all Becoming easily annoyed or irritable: 0 = Not at all Feeling afraid as if something awful might happen: 0 = Not at all Total JASVIR-7 score (0-4 normal; 5-9 mild; 10-14 moderate; 15-21 severe): 1 Source: Developed by Drs. Jan Bee, Ashlee Jordan, Pj Hanson and colleagues, with an educational puja from [employer] JASVIR-7 Assessment Billing JASVIR-7 Assessment Tool: JASVIR-7 Assessment 50507 Review of Systems Const All systems reviewed & are unremarkable except as noted in HPI and below Card Denies chest pain at rest, Denies chest pain with activity, Denies edema, Denies irregular heart rhythm, Denies claudication, Denies dyspnea, Denies dyspnea on exertion, Denies orthopnea, Denies paroxysmal nocturnal dyspnea and Denies slow heart rate Resp Denies cough, Denies dyspnea and Denies dyspnea on exertion Physical exam (Primary Care) Vital Signs: Last Vital Signs BP 118/78 01/16/25 15:26 BMI result Body Mass Index 33.5 Tobacco/Smoking Status: Tobacco use Status Tobacco use date assessed 01/16/25 01/16/25 15:30 Patient Tobacco Use Status Former Tobacco user 01/16/25 15:30 e-Cigarette/Vaping Use Never Used 01/16/25 15:30 PHQ-9: PHQ-9 Score PHQ-9: Total score 0 01/16/25 15:38 Depression Screening Interpretation: Negative Thrive Assessment: Date of Thrive Assessment Date Thrive assessed 01/15/25 01/16/25 15:30 Currently or been in a relationship where the following occur: No concerns reported HENMT Head: Yes normal to inspection, Yes normocephalic and Yes atraumatic Ears: external ears normal Eyes General: appearance normal, both eyes and all related structures Eyelids: Yes eyelids normal Conjunctivae: conjunctivae normal Resp Effort & Inspection: normal respiratory effort Auscultation: clear to auscultation bilaterally Cardio Jugular venous distension: no JVD Rate: regular rate Rhythm: regular rhythm Heart sounds: S1 normal heart sound present and S2 normal heart sound present GI Inspection: Yes normal to inspection Palpation (GI): Soft to palpation and nontender Auscultation: normal bowel sounds Skin General skin exam: no rashes or lesions noted Neuro General: no focal motor deficits Extrem General: Yes full ROM Psych Appearance: grossly normal Coding Level of Care Code Est Pt Level 3 (97554) Est Pt Prev Care 18-39y(43003) Diagnoses Adult general medical exam Z00.00 Lumbar spondylosis M47.816 Additional Codes JASVIR-7 Assessment Billing - JASVIR-7 Assessment Tool: JASVIR-7 Assessment 47903 ([id number]) PHQ-9 - 31401 - PHQ-9 Billing: Yes ([id number]) Time Spent (min) 32 Assessment & Plan Assessment & Plan (1) Adult general medical exam: Code(s): Z00.00 - Encounter for general adult medical examination without abnormal findings Category: Medical (2) Lumbar spondylosis: Code(s): M47.816 - Spondylosis without myelopathy or radiculopathy, lumbar region Category: Medical Plan For the management of back pain, physical therapy or pain management options were considered to address her symptoms effectively. A re-evaluation of Vitamin D levels was advised due to persistent symptoms indicative of deficiency, with supplementation to follow accordingly. Her prescription for Ibuprofen was renewed to manage lactose intolerance-related stomach discomfort, considering previous renal function assessments. Emphasis on ongoing and renewed back pain management strategies was also highlighted. Patient was informed and verbally consented to the use of an ambient scribe for clinic note documentation during this visit. I discussed with the patient the management of her chronic back pain, considering physical therapy or revisiting pain management as viable options. Given her recent fatigue, we agreed to screen for Vitamin D deficiency and consider supplementation once levels are assessed. Treatment options were reviewed without adverse outcomes; for her lactose intolerance, the utilization of Ibuprofen was determined appropriate following satisfactory renal assessments. Further discussions should explore persistent back pain management to maintain joint integrity. Orders: Orders Vitamin D 25-OH Total Today E55.9 - Vitamin D deficiency, unspecified Medications: New cholecalciferol (vitamin D3) 25 mcg PO DAILY 90 caps 3RF 90 days Changed From ibuprofen 800 mg PO Q8H 10 days 30 tabs 0RF M70.22 - Olecranon bursitis, left elbow To ibuprofen 800 mg PO Q8H PRN 90 tabs 1RF pain 30 days M70.22 - Olecranon bursitis, left elbow Patient Instructions: - Undergo Vitamin D level testing as discussed - Use Ibuprofen as needed for lactose intolerance, per prescription - Consider re-engaging with physical therapy - Attend to back pain with prescribed strategies - Maintain schedule for routine health exams and vaccinations
[2025-01-16 15:26] VITALS: BP 118/78; BMI 33.5
--- OUTSIDE RECORDS SUMMARY | 2025-01-16 18:12 | XMS_ITS | Encounter Summary ---
Author Organization [employer] Address [address] [place] [address] Care Team Providers Care Agricultural Research Director Name Role Phone Unavailable Primary Care Provider Unavailabl e Encounter Details Date Type Department Care Team (Latest Contact Info) Description 10/23/[address] [facility] - Main Lab [address] [place] [address] Raghu Urrutia MD [address] [facility] [address] [place] [address] Acute vaginitis; Encounter for screening for infections with a predominantly sexual mode of transmission Social History Tobacco Use Types Packs/Day Years Used Date Smoking Tobacco: Never Assessed Comments Unknown Sex and Gender Information Value Date Recorded Sex Assigned at Not on file Legal Sex Female 6:15 PM EST Gender Identity Not on file Sexual Orientation Not on file documented as of this encounter Plan of Treatment Not on file documented as of this encounter Procedures Procedure Name Priority Date/Time Associated Diagnosis Comments VAGINITIS PATHOGENS BY PCR Routine 10/23/2024 12:00 AM EST Acute vaginitis Encounter for screening for infections with a predominantly sexual mode of transmission CHLAMYDIA TRACHOMATIS AND NEISSERIA GONORRHOEAE PCR Routine 10/23/2024 12:00 AM EST Acute vaginitis Encounter for screening for infections with a predominantly sexual mode of transmission documented in this encounter Results * Vaginitis pathogens molecular study (10/23/2024 12:00 AM EST) Trichomonas vaginalis Negative Negative 10/24/2024 11:20 AM EST [facility] Gardnerella vaginalis Negative Negative 10/24/2024 11:20 AM EST [facility] Dana Species Negative Negative 11:20 AM EST [facility] Swab Vaginal structure / Unknown 10/23/2024 10/23/2024 6:10 PM EST us Raghu Urrutia MD LAB MICROBIOLOGY - GENERAL ORD ERABLES Final Result [facility] [address] [place] [address], [place] [phone] * Chlamydia trachomatis and Neisseria gonorrhoeae molecular study (10/23/2024 12:00 AM EST) Neisseria gonorrhoeae PCR Negative Negative LAB MOLECULAR DIAGNOSTICS METHOD 10/24/2024 9:12 AM [facility] Chlamydia trachomatis PCR Negative Negative LAB MOLECULAR DIAGNOSTICS METHOD 10/24/2024 9:12 AM [facility] Swab Cervix uteri structure / Unknown 10/23/2024 10/23/2024 6:10 PM EST us Raghu Urrutia MD LAB MICROBIOLOGY - GENERAL ORD ERABLES Final Result [facility] [address] [place] [address], [place] [phone] documented in this encounter Visit Diagnoses Diagnosis Acute vaginitis Unspecified vaginitis and vulvovaginitis Encounter for screening for infections with a predominantly sexual mode of transmission documented in this encounter
--- OUTSIDE RECORDS SUMMARY | 2025-01-16 18:12 | XMS_ITS | Clinical Summary ---
Author Organization 299 [facility] Address [address] [place] [address] Phone Care Team Providers Care Bingo Checker Name Role Phone Unavailable Primary Care Provider Unavailabl e Encounters Date Type Department Care Team Description 10/23/2024 Lab Requisition [facility] - Main Lab [address] [facility] [place] [address] Raghu Urrutia MD Acute vaginitis; Encounter for screening for infections with a predominantly sexual mode of transmission from Last 3 Months Social History Tobacco Use Types Packs/Day Years Used Date Smoking Tobacco: Never Assessed Comments Unknown Sex and Gender Information Value Date Recorded Sex Assigned at Not on file Legal Sex Female 6:15 PM EST Gender Identity Not on file Sexual Orientation Not on file Plan of Treatment Health Maintenance Due Date Last Done Comments DTaP,Tdap,and Td Vaccines (1 - Tdap) 2014 Hepatitis B Vaccines (1 of 3 - 19+ 3-dose series) 2014 Cervical Cancer Screening: P ap Smear 2016 COVID-19 Vaccine ( - 2023-2 5 season) 2024 Influenza Vaccine (#1) 2024 Depression Screening 10/24/2024 HIV Screening 10/24/2024 Hepatitis C Screening 10/24/2024 Social Influencers of Health Screening 10/24/2024 HIB Vaccines Aged Out No longer eligi ble based on patient's age to complete this topic HPV Vaccines Aged Out No longer eligi ble based on patient's age to complete this topic Hepatitis A Vaccines Aged Out No long er eligible based on patient's age to complete this topic IPV Vaccines Aged Out No longer eligi ble based on patient's age to complete this topic MMR Vaccines Aged Out No longer eligi ble based on patient's age to complete this topic Meningococcal ACWY Vaccine Aged Out N o longer eligible based on patient's age to complete this topic Meningococcal B Vacine Aged Out No lo nger eligible based on patient's age to complete this topic Pneumococcal Vaccine: Pediat rics (0 to 5 Years) and At-Risk Patients (6 to 64 Years) Aged Out No longer eligible b ased on patient's age to complete this topic RSV Immunization Patients Un karie 20 months Aged Out No longer eligible b ased on patient's age to complete this topic Varicella Vaccines Aged Out No longer eligible based on patient's age to complete this topic Procedures Procedure Name Priority Date/Time Associated Diagnosis Comments VAGINITIS PATHOGENS BY PCR Routine 10/23/2024 12:00 AM EST Acute vaginitis Encounter for screening for infections with a predominantly sexual mode of transmission CHLAMYDIA TRACHOMATIS AND NEISSERIA GONORRHOEAE PCR Routine 10/23/2024 12:00 AM EST Acute vaginitis Encounter for screening for infections with a predominantly sexual mode of transmission from Last 3 Months Results * Vaginitis pathogens molecular study (10/23/2024 12:00 AM EST) Trichomonas vaginalis Negative Negative 10/24/2024 11:20 AM EST [facility] Gardnerella vaginalis Negative Negative 10/24/2024 11:20 AM EST [facility] Dana Species Negative Negative 11:20 AM EST [facility] Swab Vaginal structure / Unknown 10/23/2024 10/23/2024 6:10 PM EST us Raghu Urrutia MD LAB MICROBIOLOGY - GENERAL ORD ERABLES Final Result [facility] [address] [place] [address], * Chlamydia trachomatis and Neisseria gonorrhoeae molecular study (10/23/2024 12:00 AM EST) Neisseria gonorrhoeae PCR Negative Negative LAB MOLECULAR DIAGNOSTICS METHOD 10/24/2024 9:12 AM EST [facility] Chlamydia trachomatis PCR Negative Negative LAB MOLECULAR DIAGNOSTICS METHOD 10/24/2024 9:12 AM EST [facility] Swab Cervix uteri structure / Unknown 10/23/2024 10/23/2024 6:10 PM EST us Raghu Urrutia MD LAB MICROBIOLOGY - GENERAL ORD ERABLES Final Result [facility] [address] [place] [address], [place] [phone] from Last 3 Months Insurance MEDICAID - [place]
== END 2025-01-16 15:49 | disposition home or self-care (01) ==
LOC: HO.HMCH 15:21
PROVIDERS: PCP Internal Medicine; Visit Provider Internal Medicine
DX: Z00.00 Encounter for general adult medical examination without abnormal findings (principal); M47.816 Spondylosis without myelopathy or radiculopathy, lumbar region

== ENCOUNTER 2025-01-16 15:20 | Outpatient (REF) | payer OTHER, SELFPAY ==
[2025-01-16 18:21] LABS: Vitamin D 25-OH Total 15.5 ng/mL (>30)
--- OUTSIDE RECORDS SUMMARY | 2025-01-16 18:37 | XMS_ITS | Clinical Summary ---
Author Organization 299 [facility] Address [address] [place] [address] Phone Care Team Providers Care Career Developer Name Role Phone Unavailable Primary Care Provider Unavailabl e Encounters Date Type Department Care Team Description 10/23/2024 Lab Requisition [facility] - Main Lab 299 [facility] [place] [address] Raghu Urrutia MD Acute vaginitis; [...] vaginalis Negative Negative 10/24/2024 11:[address] [facility] Gardnerella vaginalis Negative Negative 10/24/2024 11:[address] [facility] Dana Species Negative Negative 11:[address] [facility] Swab Vaginal structure / Unknown 10/23/2024 10/23/2024 6:10 PM EST us Raghu Urrutia MD LAB MICROBIOLOGY - GENERAL ORD ERABLES Final Result [facility] [address] [place] [address], * Chlamydia trachomatis and Neisseria gonorrhoeae molecular study (10/23/2024 12:00 AM EST) Neisseria gonorrhoeae PCR Negative Negative LAB MOLECULAR DIAGNOSTICS METHOD 10/24/2024 9:[address] [facility] Chlamydia trachomatis PCR Negative Negative LAB MOLECULAR DIAGNOSTICS METHOD 10/24/2024 9:[address] [facility] Swab Cervix uteri structure / Unknown 10/23/2024 10/23/2024 6:10 PM EST us Raghu Urrutia MD LAB MICROBIOLOGY - GENERAL ORD ERABLES Final Result [facility] [address] [place] [address], [place] [phone] from Last 3 Months Insurance [place]ICA[place] - [place]
--- OUTSIDE RECORDS SUMMARY | 2025-01-16 18:37 | XMS_ITS | Encounter Summary ---
Author Organization [employer] Address [address] [place] [address] Care Team Providers Care Avionics Systems Integration Specialist Name Role Phone Unavailable Primary Care Provider Unavailabl e Encounter Details Date Type Department Care Team (Latest Contact Info) Description 10/23/[address] [facility] - Main Lab [address] [place] [address] Raghu Urrutia MD 299 [facility] [address] [place] [address] Acute vaginitis; Encounter for screening [...] vaginalis Negative Negative 10/24/2024 11:20 AM EST [facility] Gardnerella vaginalis Negative Negative 10/24/2024 11:20 AM EST [facility] Dana Species Negative Negative 11:20 AM EST [facility] Swab Vaginal structure / Unknown 10/23/2024 10/23/2024 6:10 PM EST us Raghu Urrutia MD LAB MICROBIOLOGY - GENERAL ORD ERABLES Final Result [facility] [address] [place] [address], [place] [phone] * Chlamydia trachomatis and Neisseria gonorrhoeae molecular study (10/23/2024 12:00 AM EST) Neisseria gonorrhoeae PCR Negative Negative LAB MOLECULAR DIAGNOSTICS METHOD 10/24/2024 9:12 AM [facility] Chlamydia trachomatis PCR Negative Negative LAB MOLECULAR DIAGNOSTICS METHOD 10/24/2024 9:12 AM [facility] Swab Cervix uteri structure / Unknown 10/23/2024 10/23/2024 6:10 PM EST us Raghu Urrutia MD LAB MICROBIOLOGY - GENERAL ORD ERABLES Final Result [facility] [address] [place] [address], [place] [phone] documented in this encounter Visit Diagnoses Diagnosis Acute vaginitis Unspecified vaginitis and vulvovaginitis Encounter for screening for infections with a predominantly sexual mode of transmission documented in this encounter
== END 2025-01-16 15:21 | disposition home or self-care (01) ==
LOC: HO.LAB 15:20
PROVIDERS: PCP Internal Medicine; Visit Provider Internal Medicine
DX: Z00.01 Encounter for general adult medical examination with abnormal findings (principal); M47.816 Spondylosis without myelopathy or radiculopathy, lumbar region; E55.9 Vitamin D deficiency, unspecified; M70.22 Olecranon bursitis, left elbow
CPT/HCPCS: 36415; 82306; 96127; 99212; 99395

== ENCOUNTER 2025-06-22 07:10 | Outpatient (REF) | payer OTHER, SELFPAY ==
--- OUTSIDE RECORDS SUMMARY | 2025-06-22 07:14 | XMS_ITS | Encounter Summary ---
Author Organization [employer] Address [address] [place] [address] Care Team Providers Care Medical Billing Representative Name Role Phone Unavailable Primary Care Provider Unavailabl e Encounter Details Date Type Department Care Team (Latest Contact Info) Description 10/23/2024 Lab Requisition [facility] - Main Lab [address] [place] [address] Raghu Urrutia MD 299 [facility] [address] [place] [address] Acute vaginitis; Encounter for screening [...] vaginalis Negative Negative 10/24/2024 11:20 AM EST [facility] Gardnerella vaginalis Negative Negative 10/24/2024 11:20 AM EST [facility] Dana Species Negative Negative 11:20 AM EST [facility] Swab Vaginal structure / Unknown 10/23/2024 10/23/2024 6:10 PM EST us Raghu Urrutia MD LAB MICROBIOLOGY - GENERAL ORD ERABLES Final Result [facility] [address] [place] [address], [place] [phone] * Chlamydia trachomatis and Neisseria gonorrhoeae molecular study (10/23/2024 12:00 AM EST) Neisseria gonorrhoeae PCR Negative Negative LAB MOLECULAR DIAGNOSTICS METHOD 10/24/2024 9:12 AM [facility] Chlamydia trachomatis PCR Negative Negative LAB MOLECULAR DIAGNOSTICS METHOD 10/24/2024 9:12 AM [facility] Swab Cervix uteri structure / Unknown 10/23/2024 10/23/2024 6:10 PM EST us Raghu Urrutia MD LAB MICROBIOLOGY - GENERAL ORD ERABLES Final Result [facility] [address] [place] [address], [place] [phone] documented in this encounter Visit Diagnoses Diagnosis Acute vaginitis Unspecified vaginitis and vulvovaginitis Encounter for screening for infections with a predominantly sexual mode of transmission documented in this encounter
--- OUTSIDE RECORDS SUMMARY | 2025-06-22 07:14 | XMS_ITS | Clinical Summary ---
Author Organization 299 [facility] Address [address] [place] [address] Phone Care Team Providers Care Wig Maker Name Role Phone Unavailable Primary Care Provider Unavailabl e Social History Tobacco Use Types Packs/Day Years [...] Vaccine ( - 2023-2 5 season) 2024 Depression Screening 10/18/2024 HIV Screening 10/24/2024 Hepatitis C Screening 10/24/2024 Social Influencers of Health Screening 10/24/2024 Influenza Vaccine (#1) 2025 HIB Vaccines Aged Out No longer eligi [...] age to complete this topic Meningococcal B Vaccine Aged Out No l onger eligible based on patient's age to complete this topic Pneumococcal Vaccine: Pediat rics (0 to 5 Years) and At-Risk Patients (6 to 49 Years) Aged Out No longer eligible b ased on patient's age to complete this topic RSV Immunization Patients Un karie 20 months Aged Out No longer eligible b ased on patient's age to complete this topic Varicella Vaccines Aged Out No longer eligible based on patient's age to complete this topic Insurance [place]ICA[place] - [place]
[2025-06-22 08:58] LABS: HBS Num1 4.19 mIU/mL (0-7.99); HBc Num1 0.20 S/CO (0.00-0.79); HBsAGNum1 0.43 S/CO (0.00-0.99); Hepatitis B Surface Antigen Negative (Negative); ~Hepatitis B Surface Antibody NONREACTIVE (Nonreactive)
== END 2025-06-22 07:11 | disposition home or self-care (01) ==
LOC: HO.LAB 07:10
PROVIDERS: PCP Internal Medicine; Visit Provider Internal Medicine
DX: Z23 Encounter for immunization (principal); Z01.84 Encounter for antibody response examination
CPT/HCPCS: 36415; 86704; 86706; 87340

== ENCOUNTER 2025-07-19 16:36 | Outpatient (AMB) | payer OTHER, SELFPAY ==
--- NOTE | 2025-07-19 16:47 | AM.OFFVISNUR ---
Intake Visit Reasons: Hep b shot Allergies Sulfa (Sulfonamide Antibiotics) Allergy (Unknown, Verified 01/16/25 15:36) hives Immunizations Recombivax HB (PF) 10 mcg/mL intramuscular suspension Performing Provider: Luz Bosch MD [facility] Administered by: Danielle Mcginnis LPN on 07/19/25 16:47 Dose Route Admin Location Dispensed Lot Number Expiration Date [facility] Rivet Hole Puncher 1 mL IM Left Deltoid 1 mL [id number] 05/15/27 85781-486-95 [employer] Total Dispensed Waste 1 mL 0 % VIS Given Date VIS Provided VIS Publication Date 07/19/25 Single Vaccine 23 Eligibility Eligibility Date Funding Source Not [facility] Eligible 07/19/25 Private Assessment & Plan Assessment & Plan Orders: Orders Hepatitis B Adult Immunization Today Z23 - Encounter for immunization Coding
== END 2025-07-19 16:54 | disposition home or self-care (01) ==
LOC: HO.HMCH 16:37
PROVIDERS: PCP Internal Medicine; Visit Provider Internal Medicine
DX: Z23 Encounter for immunization (principal)

== ENCOUNTER → 2025-07-19 16:36 | Outpatient (BNVA) | payer OTHER, SELFPAY | PROVIDERS: PCP Internal Medicine; Visit Provider Internal Medicine | DX: Z23 Encounter for immunization (principal) | CPT/HCPCS: 90471; 90746 ==

== ENCOUNTER 2025-09-07 16:44 | Outpatient (REF) | payer OTHER, SELFPAY ==
--- OUTSIDE RECORDS SUMMARY | 2025-09-07 16:47 | XMS_ITS | Clinical Summary ---
Author Organization 299 [facility] Address [address] [place] [address] Phone Care Team Providers Care Prospecting Driller Helper Name Role Phone Unavailable Primary Care Provider [...] Cervical Cancer Screening: P ap Smear 2016 HPV Vaccines (1 - 3-dose SCD M series) 2022 Depression Screening 10/18/2024 HIV Screening 10/24/2024 Hepatitis C Screening 10/24/2024 Social Influencers of Health Screening 10/24/2024 COVID-19 Vaccine (1 - 2024-2 6 season) 2025 Influenza Vaccine (#1) 2025 RSV Immunization Adult Patie nts (1 - 1-dose 75+ series) 2070 HIB Vaccines Aged Out No longer eligi [...]
--- OUTSIDE RECORDS SUMMARY | 2025-09-07 16:47 | XMS_ITS | Encounter Summary ---
Author Organization [employer] Address [address] [place] [address] Care Team Providers Care Computer Repairer Name Role Phone Unavailable Primary Care Provider Unavailabl e Encounter Details Date Type Department Care Team (Latest Contact Info) Description 10/23/2024 Lab Requisition [facility] - Main Lab [address] [place] [address] Raghu Urrutia MD 299 [facility] [address] [place] [address] Acute vaginitis; Encounter for screening [...] vaginalis Negative Negative 10/24/2024 11:20 AM EST [facility] Gardnerella vaginalis Negative Negative 10/24/2024 11:20 AM EST [facility] Dana Species Negative Negative 11:20 AM EST [facility] Swab Vaginal structure / Unknown 10/23/2024 10/23/2024 6:10 PM EST us Raghu Urrutia MD LAB MICROBIOLOGY - GENERAL ORD ERABLES Final Result [facility] [address] [place] [address], [place] [phone] * Chlamydia trachomatis and Neisseria gonorrhoeae molecular study (10/23/2024 12:00 AM EST) Neisseria gonorrhoeae PCR Negative Negative LAB MOLECULAR DIAGNOSTICS METHOD 10/24/2024 9:12 AM [facility] Chlamydia trachomatis PCR Negative Negative LAB MOLECULAR DIAGNOSTICS METHOD 10/24/2024 9:12 AM [facility] Swab Cervix uteri structure / Unknown 10/23/2024 10/23/2024 6:10 PM EST us Raghu Urrutia MD LAB MICROBIOLOGY - GENERAL ORD ERABLES Final Result [facility] [address] [place] [address], [place] [phone] documented in this encounter Visit Diagnoses Diagnosis Acute vaginitis Unspecified vaginitis and vulvovaginitis Encounter for screening for infections with a predominantly sexual mode of transmission documented in this encounter
[2025-09-08 08:49] LABS: HBS Num1 142.33 mIU/mL (0-7.99); HBc Num1 0.08 S/CO (0.00-0.79); HBsAGNum1 0.42 S/CO (0.00-0.99); Hepatitis B Surface Antigen Negative (Negative); ~Hepatitis B Surface Antibody REACTIVE (Nonreactive)
[2025-09-08 14:18] LABS: Rubeola IgG (Measles) >300.00 AU/mL
[2025-09-10 09:03] LABS: TS Negative Control Passed; TS Panel A 2; TS Panel B 3; TS Positive Control Passed; TSpotTB Negative (Negative)
== END 2025-09-07 16:45 | disposition home or self-care (01) ==
LOC: HO.LAB 16:44
PROVIDERS: PCP Internal Medicine; Visit Provider Internal Medicine
DX: Z11.1 Encounter for screening for respiratory tuberculosis (principal); Z11.59 Encounter for screening for other viral diseases; Z01.84 Encounter for antibody response examination
CPT/HCPCS: 36415; 86481; 86704; 86706; 86735; 86762; 86765; 86787; 87340